=== PATIENT | male | born 1980 | race American Indian/Alaskan Native ===

== ENCOUNTER 2021-05-03 14:06 | Outpatient (REF) | payer OTHER, SELFPAY | END 2021-05-03 14:07 | disposition home or self-care (01) | LOC: HO.LNP 14:06 | PROVIDERS: Visit Provider Physician Assistant Medical | DX: Z20.822 Contact with and (suspected) exposure to COVID-19 (principal) | CPT/HCPCS: U0003; U0005 ==

== ENCOUNTER 2022-09-11 08:41 | Emergency (ER) | payer OTHER, SELFPAY ==
[2022-09-11 08:42] VITALS: BP 105/75; PULSE 78; RESP 16; TEMP 36.7; O2SAT 99; BMI 24.3
[2022-09-11 08:59] VITALS: BP 109/69; PULSE 71; RESP 18; TEMP 36.8; O2SAT 99
--- NOTE | 2022-09-11 09:31 | ED.BACK ---
HPI - Back Pain/Injury General Chief Complaint: Back Pain/Injury Stated Complaint: Back Pain S/P Work Injury 09/09/22 Time Seen by Provider: 09/11/22 09:03 Source: patient Mode of arrival: ambulatory History of Present Illness HPI Narrative: 42-year-old male with no significant past medical history presenting to the ED complaining of bilateral low back pain x 3 days s/p heavy lifting working on cabinet at work. Denies radiation of pain. Denies direct injury/trauma or fall, numbness, tingling, weakness, fever, urinary incontinence/retention, hematuria MD elicited complaint: back pain Related Data Previous Rx's Medication Instructions Recorded sulfacetamide sodium 10 % eye 1 drp ophthalmic (eye) Q4H #15 mL 05/03/21 drops (Bleph-10) acetaminophen 500 mg tablet 500 mg PO Q6H PRN fever or pain 09/11/22 (Tylenol Extra Strength) #14 tabs cyclobenzaprine 5 mg tablet 5 mg PO Q8H PRN pain (scale score 09/11/22 7-10) 5 days #14 tabs lidocaine 5 % topical patch 1 patch topical DAILY PRN pain #30 09/11/22 (Lidoderm) ea naproxen 500 mg tablet 500 mg PO BID PRN pain 10 days #20 09/11/22 tabs Allergies Allergy/AdvReac Type Severity Reaction Status Date / Time No Known Allergies Allergy Verified 09/11/22 08:45 Review of Systems Review of Systems: Constitutional: No Fever, No Chills ENT/Mouth: No Ear Pain, No Nasal Congestion, No Sinus Pain, No Hoarseness, No sore throat, No Rhinorrhea, No Swallowing Difficulty Cardiovascular: No Chest Pain, No SOB Respiratory: No Cough, No Sputum, No Wheezing Gastrointestinal: No Nausea, No Vomiting, No Diarrhea, No Constipation, No Abdominal pain Genitourinary: No Dysuria, No Urinary Frequency, No Hematuria, No Urinary Incontinence/retention, No Urgency, No Flank Pain Musculoskeletal: +joint pain, No Myalgias, No Joint Swelling Skin: No Skin Lesions, No rash Neuro: No Weakness, No Numbness, No Paresthesias Yes all other systems are reviewed and are negative Constitutional: Constitutional: Reports as per [facility] Past Medical History Attestation statement: The following information was validated with the patient. Social History Social History Advance Directives: No Advance Directives Information Provided: Yes Physical Exam Vital Signs: Vital Signs: Last Vital Signs Temp 98.2 F 09/11/22 08:59 Pulse 71 09/11/22 08:59 Resp 18 09/11/22 08:59 BP 109/69 09/11/22 08:59 Pulse Ox 99 09/11/22 08:59 O2 Del Method Room Air 09/11/22 08:59 BMI result Body Mass Index 24.3 Const: General: cooperative, healthy appearing and no acute distress Orientation/consciousness: patient oriented x3 Limitations: no limitations HEENT: Head: Yes normal to inspection and Yes atraumatic Ears: hearing grossly normal bilaterally General nose exam: Normal external nose present Face and sinus: Yes normal facial exam Eyes: General: appearance normal, both eyes and all related structures EOM: EOMs intact bilaterally Neck: Neck: Yes normal visual inspection and Yes no meningeal signs Resp: Effort & Inspection: normal respiratory effort and no respiratory distress Cardio: Rate: regular rate GI: Inspection: Yes normal to inspection Palpation (GI): Soft to palpation, nontender, no guarding and not rigid : General: Yes no CVA tenderness Back/Spine/Pelvis: Other: No midline thoracic/lumbar spinous tenderness/step-off or deformity. + mild bilateral lumbar MSK tenderness to palpation, mostly elicited with movement Back: no CVA tenderness Skin: Rashes: no rashes Wounds: no wounds Neuro: Other: Strength intact throughout. No saddle anesthesia. Sensation intact to light touch. Neurovascular intact distally General: patient oriented x3, tone normal and no meningeal signs Gait exam (Neuro): Normal gait present Extrem: General: Yes normal to inspection Medical Decision Making Medical Decision Making MDM Narrative: 42-year-old male with no significant past medical history presenting to the ED complaining of bilateral low back pain x 3 days s/p heavy lifting working on cabinet at work. On exam vital signs stable, NAD, nontoxic appearing, no midline spinous tenderness throughout or red flag symptoms. Ambulating with steady gait. Concern for MSK strain vs spasming. Low suspicion for cauda equina/cord compression, renal stone/pyelo or epidural abscess Plan: Pain control Please refer to course for remaining clinical decision making, interpretation of labs/imaging results, and discussions with consultants and/or family members. Differential Diagnosis Differential Diagnoses: The differential diagnosis associated with the presentation includes As above Admission/Observation Consideration of admission/observation: Escalation of care including admission/observation considered Lab Data MDM Lab Attestation statement: I reviewed the patient's lab results. Radiology Impression Discussion of test interpretation with radiology: I have reviewed the radiologist's reading. External Record Review External record reviewed: Inpatient record, Office record, Outpatient record, Prior outpatient labs, Prior outpatient radiology, Primary care record and Outside ED record Discharge Plan Discharge Clinical Impression: Strain of lumbar region Patient Disposition: Home, Self-Care Instructions: Acute Low Back Pain (ED) Additional Instructions: Your pain is likely musculoskeletal Flexeril is a muscle relaxer, take at night as it makes you drowsy, do not drive, drink alcohol, or operate machinery while taking it Naproxen as an anti-inflammatory / pain medication, take with food Lidoderm patches are numbing patches, apply to painful area In addition take Tylenol at home If symptoms persist or worsen, pain becomes unbearable, you developed urinary retention or incontinence, or weakness return to the ED Es probable que becerra dolor sea musculoesquel?alan Flexeril es un relajante muscular, t?rashaun por la noche ya que te adormece, no conduzcas, bebas alcohol ni operes maquinaria mientras lo clint. Naproxeno giovana medicamento antiinflamatorio/analg?sico, t?garcia con alimentos Los parches de Lidoderm son parches anest?sicos, se aplican en el ?silke dolorida Adem?s georgette Tylenol en casa Si los s?ntomas persisten o empeoran, el dolor se vuelve insoportable, desarroll? retenci?n urinaria o incontinencia, o debilidad, regrese al servicio de urgencias. Prescriptions: New acetaminophen [Tylenol Extra Strength] 500 mg tablet 500 mg PO Q6H PRN (Reason: fever or pain) Qty: 14 0RF lidocaine [Lidoderm] 5 % adhesive patch,medicated 1 patch topical DAILY MDD remove after 12 hours PRN (Reason: pain) Qty: 30 0RF Rx Instructions: leave on most painful area for up to 12 hrs naproxen 500 mg tablet 500 mg PO BID PRN (Reason: pain) 10 Days Qty: 20 0RF cyclobenzaprine 5 mg tablet 5 mg PO Q8H PRN (Reason: pain (scale score 7-10)) 5 Days Qty: 14 0RF No Action sulfacetamide sodium [Bleph-10] 10 % drops 1 drp ophthalmic (eye) Q4H Qty: 15 0RF Referrals: Physician,Unknown J [Primary Care Provider] - Stand Alone Forms: Work/School Release
== END 2022-09-11 10:02 | disposition home or self-care (01) ==
PROVIDERS: Emergency Provider Emergency Medicine
DX: S39.012A Strain of muscle, fascia and tendon of lower back, initial encounter (principal); X50.0XXA Overexertion from strenuous movement or load, initial encounter; Y93.89 Activity, other specified; Y92.69 Other specified industrial and construction area as the place of occurrence of the external cause; Y99.9 Unspecified external cause status
CPT/HCPCS: 99283; 99284

== ENCOUNTER 2024-06-04 08:22 | Emergency (ER) | payer OTHER, SELFPAY ==
[2024-06-04 08:24] VITALS: BP 113/71; PULSE 57; RESP 18; TEMP 35.8; O2SAT 99; BMI 24.7
[2024-06-04 09:06] VITALS: BP 118/76; PULSE 56; RESP 18; TEMP 36.2; O2SAT 99
--- NOTE | 2024-06-04 09:07 | ED.BACK ---
HPI - Back Pain/Injury General Chief Complaint: Back Pain/Injury Stated Complaint: Back pain Time Seen by Provider: 06/04/24 08:39 Source: patient and family Mode of arrival: ambulatory Limitations: no limitations History of Present Illness ED Provider: Sharath Paulson PA-C HPI Narrative: 44 yo male presents to the ER for evaluation of left lower back pain that started yesterday after he lifted up a washing machine. He states the pain comes and goes, worse with movement. Pain sometimes radiates to the left hip. No radiation to the buttock or negs. No LE weakness. No bowel/bladder issues. Taking motrin with some relief. History of similar back pain in the past about 1 year ago. MD elicited complaint: back pain and back injury Pertinent past history: prior back pain Onset (ago): day(s) (1) Timing: intermittent Severity: moderate Quality: aching and spasming Radiation: none Exacerbating factors: movement Relieving factors: immobilization and medication Context: while lifting Associated symptoms: denies other symptoms Treatments prior to arrival: NSAIDS Related Data Previous Rx's ?Medication ?Instructions ?Recorded sulfacetamide sodium 10 % eye 1 drp ophthalmic (eye) Q4H #15 mL 05/03/21 drops (Bleph-10) acetaminophen 500 mg tablet 500 mg PO Q6H PRN fever or pain 09/11/22 (Tylenol Extra Strength) #14 tabs cyclobenzaprine 5 mg tablet 5 mg PO Q8H PRN pain (scale score 09/11/22 7-10) 5 days #14 tabs lidocaine 5 % topical patch 1 patch topical DAILY PRN pain #30 09/11/22 (Lidoderm) ea naproxen 500 mg tablet 500 mg PO BID PRN pain 10 days #20 09/11/22 tabs cyclobenzaprine 10 mg tablet 10 mg PO TID PRN muscle spasm #10 06/04/24 tabs ibuprofen 600 mg tablet 600 mg PO Q8H PRN pain #14 tabs 06/04/24 lidocaine 5 % topical patch 1 patch topical DAILY #15 ea 06/04/24 Allergies Allergy/AdvReac Type Severity Reaction Status Date / Time No Known Allergies Allergy Verified 06/04/24 08:26 Review of Systems Review of Systems: Yes all other systems are reviewed and are negative [facility] Social History Social History Alcohol intake: never Advance Directives: No Advance Directives Information Provided: No Do you have a plan to hurt others: No Plan Physical Exam Vital Signs: Vital Signs: Last Vital Signs Temp 96.4 F L 06/04/24 08:24 Pulse 57 06/04/24 08:24 Resp 18 06/04/24 08:24 BP 113/71 06/04/24 08:24 Pulse Ox 99 06/04/24 08:24 O2 Del Method Room Air 06/04/24 08:24 BMI result Body Mass Index 24.7 Appearance: Alert. Oriented X3. No acute distress. HEENT: normal external inspection Neck: Normal inspection. CVS: Normal heart rate and rhythm. Pulses normal. Respiratory: No respiratory distress. Breath sounds normal. Abdomen: Soft and nontender. +BS x4 Back: normal inspection, no midline tenderness, no CVA tenderness. soft tissue tenderness in the left lower lumbar area. negative straight leg raise test bilaterally. Skin: Skin warm and dry. Normal skin color. Normal skin turgor. No rashes. Extremities: No lower extremity edema. No joint swelling. Neuro/psych: Oriented X 3. No motor deficit. No sensory deficit. Steady gait. Normal speech and cognition. Medical Decision Making Medical Decision Making MDM Narrative: 44 yo male presenting with left lower back pain after lifting a washing machine yesterday. no red flag symptoms of LBP. no fevers. no IVDA. exam reassuring. no trauma or fall. he is asking for a MRI. pt counseled. offered XR although likely etiology is MSK pain/strain. he will follow up with his PCP for imaging if no improvement. will treat w/ nsaid, muscle relaxer, stretches, ice/heat. stable for d/c home with PCP follow up. Differential Diagnosis Differential Diagnoses: The differential diagnosis associated with the presentation includes Inflammatory disorders, malignancy, trauma, osteoporosis, nerve root compression, radiculopathy, plexopathy, degenerative disc disease, disc herniation, spinal stenosis, sacroiliac joint dysfunction, facet joint injury, and less likely infection?like abscess or diskitis Independent Historian Clinical information obtained from an independent historian. History obtained from or confirmed by: Spouse External Record Review External record reviewed: Prior outpatient labs Tests considered The following testing was considered but not selected: xr lumbar spine considered Prescription Management I considered prescription management with: Pain Medication Critical Care Time Critical Care Time Critical Care Time: No Discharge Plan Discharge Clinical Impression: Strain of lumbar region Qualifiers: Encounter type: initial encounter Qualified Code(s): S39.012A - Strain of muscle, fascia and tendon of lower back, initial encounter Patient Disposition: Home, Self-Care Instructions: Low Back Strain (ED), Lower Back Exercises (ED) Additional Instructions: Your pain is most likely due to muscle strain and spasm. Limit bending, lifting or twisting. Use ice several times per day for 20 minutes at a time for the next 48 hours and then change to heat. Take medications as prescribed to help with pain and discomfort. Follow up with your Primary Care Doctor next week. If your pain worsens, if you develop new numbness, tingling, weakness, loss of function or incontinence call 911 or come back to the ER right away for evaluation. Prescriptions: New cyclobenzaprine 10 mg tablet 10 mg PO TID PRN (Reason: muscle spasm) Qty: 10 0RF ibuprofen 600 mg tablet 600 mg PO Q8H PRN (Reason: pain) Qty: 14 0RF lidocaine 5 % adhesive patch,medicated 1 patch topical DAILY Qty: 15 0RF Rx Instructions: leave on most painful area for up to 12 hrs No Action acetaminophen [Tylenol Extra Strength] 500 mg tablet 500 mg PO Q6H PRN (Reason: fever or pain) Qty: 14 0RF lidocaine [Lidoderm] 5 % adhesive patch,medicated 1 patch topical DAILY MDD remove after 12 hours PRN (Reason: pain) Qty: 30 0RF Rx Instructions: leave on most painful area for up to 12 hrs naproxen 500 mg tablet 500 mg PO BID PRN (Reason: pain) 10 Days Qty: 20 0RF cyclobenzaprine 5 mg tablet 5 mg PO Q8H PRN (Reason: pain (scale score 7-10)) 5 Days Qty: 14 0RF sulfacetamide sodium [Bleph-10] 10 % drops 1 drp ophthalmic (eye) Q4H Qty: 15 0RF Stand Alone Forms: Work/School Release Print Language: Tajik
== END 2024-06-04 09:07 | disposition home or self-care (01) ==
PROVIDERS: Emergency Provider Emergency Medicine
DX: S39.012A Strain of muscle, fascia and tendon of lower back, initial encounter (principal); X50.0XXA Overexertion from strenuous movement or load, initial encounter; Y93.89 Activity, other specified; Y92.9 Unspecified place or not applicable; Y99.9 Unspecified external cause status
CPT/HCPCS: 99282; 99283